=== PATIENT | male | born 1950 | race Hispanic/Latino ===

== ENCOUNTER → 2019-08-22 | Outpatient (CLI) | payer OTHER | END | disposition home or self-care (01) | LOC: LAB 14:10 | PROVIDERS: ATTEND Internal Medicine | DX: I50.23 Acute on chronic systolic (congestive) heart failure (principal); R05 Cough | CPT/HCPCS: 36415; 82565; 84520 ==

== ENCOUNTER → 2019-08-24 | Outpatient (CLI) | payer OTHER ==
[~2019-08-24] MED LIST: IOHEXOL-350 50ML VIAL IV ONE
== END | disposition home or self-care (01) ==
LOC: RAH 11:43
PROVIDERS: ATTEND Internal Medicine
DX: R05 Cough (principal); I50.23 Acute on chronic systolic (congestive) heart failure
CPT/HCPCS: 71260; Q9967

== ENCOUNTER → 2020-08-04 | Outpatient (CLI) | payer OTHER ==
[~2020-08-04] MED LIST changes: -IOHEXOL-350 50ML VIAL IV ONE; +REGADENOSON 0.4 MG/5 ML PF SYG IVP ONE; +REGADENOSON 0.4 MG/5 ML PF SYG IVP SCH
== END | disposition home or self-care (01) ==
LOC: SHCH 08:47
PROVIDERS: ATTEND Internal Medicine Cardiovascular Disease
DX: I21.09 ST elevation (STEMI) myocardial infarction involving other coronary artery of anterior wall (principal); I25.10 Atherosclerotic heart disease of native coronary artery without angina pectoris
CPT/HCPCS: 78452; 93017; 96374; A9500 ×2; J2785

== ENCOUNTER 2021-10-20 15:38 | Emergency (ER) | payer OTHER, MEDICARE ==
[~2021-10-20] VITALS: Ht 165.1 cm; Wt 68.0 kg
[~2021-10-20 15:38] MED LIST changes: +ASCO500C18 PO; +ATOR40TA69 PO; +CYAN1TAB19 PO; +FERR324T PO; +LEVO500T90 PO; +LOSA25TA41 PO; +METF500S7 PO; -REGADENOSON 0.4 MG/5 ML PF SYG IVP ONE; -REGADENOSON 0.4 MG/5 ML PF SYG IVP SCH
[2021-10-20 16:46] LABS: HEMATOCRIT 22.8 % (42-54); LYMPHOCYTES % (AUTO) 64.2 % (21.0-51.0); MEAN CORPUSCULAR HGB CONC 33.3 g/dL (32.0-36.0); MEAN CORPUSCULAR VOLUME 90.1 fL (79-99); MONOCYTES % (AUTO) 10.4 % (3.0-13.0); NEUTROPHILS % (AUTO) 25.4 % (40.0-77.0); RED BLOOD CELL COUNT(AUTO) 2.53 MIL/uL (4.50-6.20); RED CELL DISTRIBUTION WIDTH 14.5 % (11.0-15.5); WHITE BLOOD COUNT (AUTO) 1.9 K/uL (4.8-10.8)
[2021-10-20 16:58] LABS: PLATELET COUNT (AUTO) 2 K/uL (130-400)
[2021-10-20 17:09] LABS: CREATININE 0.8 mg/dL (0.5-1.5); POTASSIUM 4.3 mmol/L (3.5-5.1)
[2021-10-20 17:13] LABS: ALBUMIN 3.8 g/dL (3.5-5.0); BILIRUBIN,TOTAL 1.4 mg/dL (0.2-1.0); TOTAL PROTEIN, SERUM 7.7 g/dL (6.0-8.3)
[2021-10-20 17:47] LABS: APPEARANCE,URINE Clear (CLEAR); BILIRUBIN,URINE Negative (NEGATIVE); COLOR,URINE Dark Yellow (YELLOW); GLUCOSE, URINE (UA) Negative (NEGATIVE); KETONES,URINE Negative (NEGATIVE); LEUKOCYTE ESTERASE ,URINE Negative (NEGATIVE); NITRATE,URINE Negative (NEGATIVE); OCCULT BLOOD,URINE Trace (NEGATIVE); PH,URINE 5.5 (5.0-8.0); PROTEIN,URINE POS 1+ mg/dL (NEGATIVE)
[2021-10-20 18:24] LABS: BACTERIA,URINE Rare /HPF (None Seen); RBC,URINE 0-1 /HPF (0-1); SQUAMOUS EPITHELIAL CELL,UR 0-2 /HPF (0-2); WBC,URINE 0-1 /HPF (0-1)
[2021-10-20 21:38] LABS: MEAN CORPUSCULAR HEMOGLOBIN 29.7 pg (27.0-33.0); MEAN CORPUSCULAR HGB CONC 32.8 g/dL (32.0-36.0); MEAN CORPUSCULAR VOLUME 90.4 fL (79-99); RED BLOOD CELL COUNT(AUTO) 2.19 MIL/uL (4.50-6.20); RED CELL DISTRIBUTION WIDTH 14.5 % (11.0-15.5); WHITE BLOOD COUNT (AUTO) 1.9 K/uL (4.8-10.8)
[2021-10-20 21:48] LABS: HEMATOCRIT 19.8 % (42-54)
[2021-10-21 00:24] VITALS: BP 123/68
== END 2021-10-21 00:30 | disposition home or self-care (01) ==
LOC: EDH 15:38
DX: D61.818 Other pancytopenia (principal); D69.6 Thrombocytopenia, unspecified; I25.10 Atherosclerotic heart disease of native coronary artery without angina pectoris; E11.9 Type 2 diabetes mellitus without complications; Z95.1 Presence of aortocoronary bypass graft; Z79.84 Long term (current) use of oral hypoglycemic drugs; Z79.82 Long term (current) use of aspirin; Z79.899 Other long term (current) drug therapy
CPT/HCPCS: 36415; 36430; 80053; 81001; 85025; 85027; 86900; 86901; 99285; P9034 ×2

== ENCOUNTER 2021-11-26 14:23 | Observation (INO) | payer OTHER, MEDICARE ==
[~2021-11-26] VITALS: Ht 165.1 cm; Wt 62.0 kg
[2021-11-26 14:56] LABS: APPEARANCE,URINE Cloudy (CLEAR); BILIRUBIN,URINE Moderate (NEGATIVE); COLOR,URINE Dark Yellow (YELLOW); GLUCOSE, URINE (UA) Negative (NEGATIVE); KETONES,URINE 15 mg/dL (NEGATIVE); LEUKOCYTE ESTERASE ,URINE Trace (NEGATIVE); NITRATE,URINE Negative (NEGATIVE); OCCULT BLOOD,URINE Negative (NEGATIVE); PROTEIN,URINE POS 1+ mg/dL (NEGATIVE)
[2021-11-26 15:03] LABS: EOSINOPHILS % (AUTO) 0.7 % (0.0-8.0); MEAN CORPUSCULAR HEMOGLOBIN 30.5 pg (27.0-33.0); MEAN CORPUSCULAR HGB CONC 35.2 g/dL (32.0-36.0); MEAN CORPUSCULAR VOLUME 86.5 fL (79-99); MONOCYTES % (AUTO) 9.5 % (3.0-13.0); NEUTROPHILS % (AUTO) 6.8 % (40.0-77.0); RED BLOOD CELL COUNT(AUTO) 2.23 MIL/uL (4.50-6.20); RED CELL DISTRIBUTION WIDTH 14.2 % (11.0-15.5); WHITE BLOOD COUNT (AUTO) 1.5 K/uL (4.8-10.8)
[2021-11-26 15:08] LABS: BACTERIA,URINE Few /HPF (None Seen); RBC,URINE 0-1 /HPF (0-1)
[2021-11-26 15:09] LABS: MUCUS,URINE Few LPF (None Seen); SQUAMOUS EPITHELIAL CELL,UR Few /HPF (0-2)
[2021-11-26 15:10] LABS: URIC ACID CRYSTALS,URINE Few /LPF (None Seen)
[2021-11-26 15:11] LABS: AMORPHOUS SEDIMENT,UR Few /LPF (None Seen)
[2021-11-26 15:16] LABS: CREATININE 1.7 mg/dL (0.5-1.5); POTASSIUM 4.6 mmol/L (3.5-5.1)
[2021-11-26 15:17] LABS: INR 1.08 (0.85-1.15); PROTHROMBIN TIME 11.7 SEC (9.6-11.6)
[2021-11-26 15:18] LABS: PARTIAL THROMBOPLASTIN TIME 26.6 SEC (26.3-35.5)
[2021-11-26 15:21] LABS: ALBUMIN 3.7 g/dL (3.5-5.0); BILIRUBIN,TOTAL 2.2 mg/dL (0.2-1.0); TOTAL PROTEIN, SERUM 7.5 g/dL (6.0-8.3)
[2021-11-26 15:25] LABS: HEMATOCRIT 19.3 % (42-54); PLATELET COUNT (AUTO) 5 K/uL (130-400)
[2021-11-26] MEDS ORDERED: FLUC200T PO (15:29)
[2021-11-26] MEDS ORDERED: METF-444 PO (15:29)
[2021-11-26] MEDS ORDERED: AMLO5TAB5 PO (15:29)
[2021-11-26] MEDS ORDERED: DOCU100C33 PO (15:29)
[2021-11-26] MEDS ORDERED: LOSA50TA64 PO (15:29)
[2021-11-26] MEDS ORDERED: ELTR50TA PO (15:29)
[2021-11-26] MEDS ORDERED: FAMO40TA7 PO (15:29)
[2021-11-26] MEDS ORDERED: ACYC200C24 PO (15:29)
[2021-11-26] MEDS ORDERED: ACYC400T20 PO (15:29)
[2021-11-26] MEDS ORDERED: SULF1TAB42 PO (15:29)
[2021-11-26] MEDS ORDERED: FLUC200T12 PO (15:29)
[2021-11-26] MEDS ORDERED: VITA100T PO (15:29)
[2021-11-26 16:16] LABS: BAND NEUTROPHILS % (MANUAL) 5 % (0-2); LYMPHOCYTES % (MANUAL) 78 % (22-44); MAN.DIFF COMMENT-IMPRESSION MANUAL DIFFERENTIAL; MONOCYTES % (MANUAL) 6 % (2-9); REACTIVE LYMPHOCYTES 4 % (0-0); SEGMENTED NEUTROPHILS % 7 % (40-70)
[2021-11-26 16:17] LABS: PLATELET MORPHOLOGY COMMENT MARKED DECREASE
[2021-11-26] MEDS ORDERED: ACETAMINOPHEN 325 MG TAB PO PRN (17:00)
[2021-11-26] MEDS ORDERED: TEMAZEPAM 15 MG CAPSULE PO PRN (17:00)
[2021-11-26] MEDS ORDERED: CLONIDINE HCL 0.1 MG TABLET PO PRN (17:00)
[2021-11-26] MEDS ORDERED: ONDANSETRON 4MG INJ IVP PRN (17:00)
[2021-11-26] MEDS ORDERED: ACETAMINOPHEN 650 MG SUPPOSITORY RC PRN (17:00)
[2021-11-26] MEDS: 0.9%NACL 1000ML 1,000 ML IV SCH (17:00)
[2021-11-26] MEDS ORDERED: LACTULOSE 20 GM/30 ML UDCUP PO PRN (17:00)
[2021-11-26] MEDS ORDERED: CEFTRIAXONE 1G VIAL IVP SCH (22:30)
[2021-11-26] MEDS ORDERED: CEFTRIAXONE 1G VIAL ONE (22:32)
[2021-11-26 23:00] VITALS: BP 136/77
[2021-11-27 03:32] VITALS: BP 118/70
[2021-11-27] MEDS: 0.9%NACL 1000ML 1,000 ML IV SCH (04:11)
[2021-11-27 05:03] LABS: HEMATOCRIT 23.2 % (42-54); MEAN CORPUSCULAR HEMOGLOBIN 30.1 pg (27.0-33.0); MEAN CORPUSCULAR HGB CONC 34.9 g/dL (32.0-36.0); MEAN CORPUSCULAR VOLUME 86.2 fL (79-99); RED BLOOD CELL COUNT(AUTO) 2.69 MIL/uL (4.50-6.20); RED CELL DISTRIBUTION WIDTH 13.7 % (11.0-15.5); WHITE BLOOD COUNT (AUTO) 1.3 K/uL (4.8-10.8)
[2021-11-27 05:26] LABS: HEMOGLOBIN A1C 7.3 % (4.0-6.0)
[2021-11-27 05:34] LABS: MAGNESIUM 1.5 mg/dL (1.80-2.40); PHOSPHORUS 3.9 mg/dL (2.5-4.9); POTASSIUM 4.2 mmol/L (3.5-5.1)
[2021-11-27 08:00] VITALS: BP 133/74
[2021-11-27] MEDS ORDERED: PANTOPRAZOLE 40 MG TAB DR PO SCH (09:00)
[2021-11-27 11:56] LABS: HEMATOCRIT 25.3 % (42-54)
[2021-11-27 12:00] VITALS: BP 129/71
== END 2021-11-27 14:25 | disposition home or self-care (01) ==
LOC: EDH 14:23 → EDHIP 16:40 → 3DH 22:37
PROVIDERS: ADMIT Internal Medicine; ATTEND Internal Medicine
DX: D70.9 Neutropenia, unspecified (principal); D64.9 Anemia, unspecified; D69.6 Thrombocytopenia, unspecified; I12.9 Hypertensive chronic kidney disease with stage 1 through stage 4 chronic kidney disease, or unspecified chronic kidney disease; N18.30 Chronic kidney disease, stage 3 unspecified; E11.22 Type 2 diabetes mellitus with diabetic chronic kidney disease; D61.9 Aplastic anemia, unspecified; E78.00 Pure hypercholesterolemia, unspecified; I25.10 Atherosclerotic heart disease of native coronary artery without angina pectoris; N39.0 Urinary tract infection, site not specified; R11.2 Nausea with vomiting, unspecified; Z79.84 Long term (current) use of oral hypoglycemic drugs; Z79.899 Other long term (current) drug therapy; Z95.1 Presence of aortocoronary bypass graft; Z98.890 Other specified postprocedural states
CPT/HCPCS: 36415 ×2; 36430 ×2; 71045; 74176; 80048; 80053; 81001; 82270; 82550 ×2; 82948 ×2; 83036; 83735; 83874 ×2; 84100; 84484 ×3; 85014; 85018; 85025; 85027; 85610; 85730; 86850; 86900; 86901; 86923; 93005; 96361 ×4; 96374; 99285; G0378 ×14; J0696; P9016 ×2; P9034 ×2

== ENCOUNTER 2022-06-05 04:53 | Observation (INO) | payer OTHER, MEDICARE ==
[~2022-06-05] VITALS: Ht 162.6 cm; Wt 68.9 kg
[~2022-06-05 04:53] MED LIST changes: +AMLO5TAB5 PO; +DOCU100C33 PO; +ELTR50TA PO; +FAMO40TA7 PO; +LEVO-70 PO; -LEVO500T90 PO; -LOSA25TA41 PO; +LOSA50TA64 PO; +METF-444 PO; -METF500S7 PO; +SULF1TAB42 PO; +VITA100T PO
[2022-06-05 05:50] LABS: BASOPHILS % (AUTO) 0.4 % (0.0-5.0); EOSINOPHILS % (AUTO) 0.7 % (0.0-8.0); LYMPHOCYTES % (AUTO) 38.9 % (21.0-51.0); MEAN CORPUSCULAR HEMOGLOBIN 34.4 pg (27.0-33.0); MEAN CORPUSCULAR HGB CONC 33.2 g/dL (32.0-36.0); MEAN CORPUSCULAR VOLUME 103.7 fL (79-99); NEUTROPHILS % (AUTO) 49.6 % (40.0-77.0); PLATELET COUNT (AUTO) 12 K/uL (130-400); RED BLOOD CELL COUNT(AUTO) 1.89 MIL/uL (4.50-6.20); WHITE BLOOD COUNT (AUTO) 2.8 K/uL (4.8-10.8)
[2022-06-05 05:53] LABS: HEMATOCRIT 19.6 % (42-54); POTASSIUM 3.7 mmol/L (3.5-5.1)
[2022-06-05 05:55] LABS: INR 0.98 (0.85-1.15); PROTHROMBIN TIME 10.7 SEC (9.6-11.6)
[2022-06-05 05:56] LABS: PARTIAL THROMBOPLASTIN TIME 24.8 SEC (26.3-35.5)
[2022-06-05 06:00] LABS: APPEARANCE,URINE CLEAR (CLEAR); BILIRUBIN,URINE NEGATIVE (NEGATIVE); COLOR,URINE YELLOW (YELLOW); GLUCOSE, URINE (UA) NEGATIVE (NEGATIVE); KETONES,URINE NEGATIVE (NEGATIVE); LEUKOCYTE ESTERASE ,URINE NEGATIVE Leu/uL (NEGATIVE); NITRATE,URINE NEGATIVE (NEGATIVE); OCCULT BLOOD,URINE SMALL (NEGATIVE); PH,URINE 5.5 (5.0-8.0); PROTEIN,URINE 20 mg/dL (NEGATIVE); UROBILINOGEN,URINE 3 mg/dL (0.2-1.0)
[2022-06-05 06:03] LABS: ALBUMIN 4.2 g/dL (3.5-5.0); TOTAL PROTEIN, SERUM 7.2 g/dL (6.0-8.3)
[2022-06-05 06:07] LABS: BACTERIA,URINE RARE /HPF (None Seen); MUCUS,URINE RARE LPF (None Seen); SQUAMOUS EPITHELIAL CELL,UR RARE /HPF (0-2)
[2022-06-05 06:21] LABS: LYMPHOCYTES % (MANUAL) 32 % (22-44); MAN.DIFF COMMENT-IMPRESSION MANUAL DIFFERENTIAL; MONOCYTES % (MANUAL) 8 % (2-9); SEGMENTED NEUTROPHILS % 60 % (40-70)
[2022-06-05 06:22] LABS: PLATELET MORPHOLOGY COMMENT MARKED DECREASE
[2022-06-05] MEDS ORDERED: ACETAMINOPHEN 325 MG TAB PO PRN (07:00)
[2022-06-05] MEDS ORDERED: LACTULOSE 20 GM/30 ML UDCUP PO PRN (07:00)
[2022-06-05] MEDS ORDERED: DOCUSATE SODIUM 100 MG CAP PO PRN (07:00)
[2022-06-05] MEDS: INSULIN HUMULIN R 100 UNIT/ML 3ML SQ SCH ×4 (07:30→21:00)
[2022-06-05] MEDS ORDERED: LISI2.5T13 PO (10:40)
[2022-06-05] MEDS ORDERED: CYCL100S4 PO (10:40)
[2022-06-05 13:05] LABS: HEMATOCRIT 23.4 % (42-54)
[2022-06-05 18:58] LABS: HEMATOCRIT 22.4 % (42-54)
[2022-06-05] MEDS: CYCLOSPORINE, MODIFIED 25 MG CAPSULE PO SCH (21:56)
[2022-06-05] MEDS: FAMOTIDINE 20MG VIAL IV SCH (21:56)
[2022-06-05] MEDS: FERROUS GLUCONATE 324 TABLET PO SCH (21:56)
[2022-06-06 01:26] LABS: HEMATOCRIT 22.2 % (42-54)
[2022-06-06 06:49] LABS: EOSINOPHILS % (AUTO) 1.2 % (0.0-8.0); HEMATOCRIT 24.5 % (42-54); LYMPHOCYTES % (AUTO) 33.5 % (21.0-51.0); MEAN CORPUSCULAR HEMOGLOBIN 33.3 pg (27.0-33.0); MEAN CORPUSCULAR HGB CONC 33.5 g/dL (32.0-36.0); MEAN CORPUSCULAR VOLUME 99.6 fL (79-99); MONOCYTES % (AUTO) 8.9 % (3.0-13.0); PLATELET COUNT (AUTO) 34 K/uL (130-400); RED BLOOD CELL COUNT(AUTO) 2.46 MIL/uL (4.50-6.20); RED CELL DISTRIBUTION WIDTH 19.2 % (11.0-15.5); WHITE BLOOD COUNT (AUTO) 2.6 K/uL (4.8-10.8)
[2022-06-06] MEDS ORDERED: ELTROMBOPAG OLAMINE PO SCH (07:30)
[2022-06-06] MEDS: INSULIN HUMULIN R 100 UNIT/ML 3ML SQ SCH ×2 (07:30→11:24)
[2022-06-06 08:14] LABS: ALBUMIN 3.8 g/dL (3.5-5.0); CREATININE 0.9 mg/dL (0.5-1.5); MAGNESIUM 1.8 mg/dL (1.80-2.40); PHOSPHORUS 3.9 mg/dL (2.5-4.9); POTASSIUM 3.9 mmol/L (3.5-5.1); TOTAL PROTEIN, SERUM 6.8 g/dL (6.0-8.3)
[2022-06-06] MEDS ORDERED: LISINOPRIL 2.5 MG TABLET PO SCH (09:00)
[2022-06-06] MEDS: FERROUS GLUCONATE 324 TABLET PO SCH (09:54)
[2022-06-06] MEDS: CYCLOSPORINE, MODIFIED 25 MG CAPSULE PO SCH ×2 (09:54→13:56)
[2022-06-06] MEDS: FAMOTIDINE 20MG VIAL IV SCH (09:54)
[2022-06-06 10:27] LABS: LYMPHOCYTES % (MANUAL) 46 % (22-44); MAN.DIFF COMMENT-IMPRESSION MANUAL DIFFERENTIAL; MONOCYTES % (MANUAL) 12 % (2-9); PLATELET MORPHOLOGY COMMENT MARKED DECREASE; SEGMENTED NEUTROPHILS % 42 % (40-70)
[2022-06-06 14:41] VITALS: BP 121/75
== END 2022-06-06 16:00 | disposition home or self-care (01) ==
LOC: EDH 04:53 → EDHIP 06:51
PROVIDERS: ADMIT Internal Medicine Critical Care Medicine; ATTEND Internal Medicine Critical Care Medicine
DX: D61.9 Aplastic anemia, unspecified (principal); D69.6 Thrombocytopenia, unspecified; E11.9 Type 2 diabetes mellitus without complications; I10 Essential (primary) hypertension; I25.2 Old myocardial infarction; I25.10 Atherosclerotic heart disease of native coronary artery without angina pectoris; K21.9 Gastro-esophageal reflux disease without esophagitis; H33.22 Serous retinal detachment, left eye; H53.2 Diplopia; R45.851 Suicidal ideations; Z87.442 Personal history of urinary calculi; Z90.49 Acquired absence of other specified parts of digestive tract; Z95.1 Presence of aortocoronary bypass graft
CPT/HCPCS: 96374; 36430; 84484; 80053 ×2; 85025 ×2; 85610; 85730; 85014 ×3; 85018 ×3; 86850; 86900; 86901; 86923; 82948 ×6; 81001; 36415 ×2; 71045; 99291; 93005; 96376; 83735; 84100; G0378 ×31; P9034; P9016; J3490 ×2; J7515 ×2